=== PATIENT | female | born 1940 | race Two or more races ===

== ENCOUNTER 2018-11-17 11:34 | Outpatient (CLI) | payer OTHER | END 2018-11-17 11:40 | disposition home or self-care (01) | LOC: RAD 11:34 | DX: M41.26 Other idiopathic scoliosis, lumbar region (principal); M48.062 Spinal stenosis, lumbar region with neurogenic claudication ==

== ENCOUNTER 2023-07-24 08:23 | Outpatient (CLI) | payer OTHER | END 2023-07-24 08:32 | disposition home or self-care (01) | LOC: TOM 08:23 | PROVIDERS: ATTEND Urology | DX: C65.1 Malignant neoplasm of right renal pelvis (principal) ==